=== PATIENT | female | born 1995 | race Caucasian/White ===

== ENCOUNTER 2016-09-29 15:56 | Emergency (ER) | payer OTHER ==
[2016-09-29 16:20] VITALS: TEMP 98.5; BMI 27.4
--- NOTE | 2016-09-29 16:29 | PDOC ---
History of Present Illness - History of Present Illness Initial Comments: 09/29/16 17:16 Patient is a 21 year old female with significant medical hx of seizures, severe asthma (s/p multiple intubations), and cardiac arrest x2 secondary to respiratory failure, who is presenting to the ED for wheezing. Patient was discharged on prednisone from [facility] this morning for asthma exacerbation ; she also received oral solumedrol while in the ED. After her discharge earlier today the patient began wheezing and she called EMS. Patient states she had two nebulizer treatments today which did not relieve her symptoms. The patient reports she is frequently around a tobacco smoker at home, which aggravates her asthma. The patient is not currently followed by a cigarette tipper due to insurance reasons. Surgical Hx: Allergies: eggs, latex, mushrooms PMD: Adonay Vidales MD <Julieta Navarro - Last Filed: 09/29/16 17:16> <Ijeoma Crisostomo - Last Filed: 09/29/16 17:21> - General Chief Complaint: Asthma Stated Complaint: ASTHMA Time Seen by Provider: 09/29/16 16:27 Past History <Julieta Navarro - Last Filed: 09/29/16 17:16> - Past Medical History Asthma: Yes (MULTIPLE INTUBATION, CARD ARREST X2) Psychiatric Problems: Yes (PTSD,DEPRESSION) Seizures: Yes - Psycho/Social/Smoking Cessation Hx Anxiety: No Suicidal Ideation: No Smoking History: Never smoked Have you smoked in the past 12 months: No Information on smoking cessation initiated: No Hx Alcohol Use: No Drug/Substance Use Hx: No Substance Use Type: None <Ijeoma Crisostomo - Last Filed: 09/29/16 17:21> - Past Medical History Allergies/Adverse Reactions: Allergies Allergy/AdvReac Type Severity Reaction Status Date / Time egg Allergy Verified 02/19/16 15:02 latex Allergy Verified 09/29/16 16:14 mushroom Allergy Verified 09/29/16 16:14 Home Medications: Ambulatory Orders Epinephrine [Epipen 2-Ronald] 0.3 mg IJ ASDIR #1 kit 02/19/16 Bupropion HCl [Wellbutrin Sr] 100 mg PO DAILY 09/29/16 Divalproex Sodium [Depakote] 500 mg PO DAILY 09/29/16 Epinephrine [Epipen 2-Ronald] 0.3 mg IJ ASDIR #1 kit 09/29/16 Fluticasone Propionate [Flovent Diskus] 100 mcg IH BID 09/29/16 LamoTRIgine [LaMICtal] 150 mg PO DAILY 09/29/16 Montelukast Na [Singulair -] 10 mg PO HS 09/29/16 Review of Systems - Review of Systems Comments:: 09/29/16 17:18 CONSTITUTIONAL: Absent: fever, chills, diaphoresis, generalized weakness, malaise, loss of appetite HEENT: Absent: rhinorrhea, nasal congestion, throat pain, throat swelling, difficulty swallowing, mouth swelling, ear pain, eye pain, visual changes CARDIOVASCULAR: Absent: chest pain, syncope, palpitations, irregular heart rate, lightheadedness , peripheral edema RESPIRATORY: Present: wheezing Absent: cough, shortness of breath, dyspnea with exertion, orthopnea, stridor, hemoptysis GASTROINTESTINAL: Absent: abdominal pain, abdominal distension, nausea, vomiting, diarrhea, constipation, melena, hematochezia GENITOURINARY: Absent: dysuria, frequency, urgency, hesitancy, hematuria, flank pain, genital pain MUSCULOSKELETAL: Absent: myalgia, arthralgia, joint swelling SKIN: Absent: rash, itching, pallor HEMATOLOGIC/IMMUNOLOGIC: Absent: easy bleeding, easy bruising, lymphadenopathy, frequent infections ENDOCRINE: Absent: unexplained weight gain, unexplained weight loss, heat intolerance, cold intolerance NEUROLOGIC: Absent: headache, focal weakness or paresthesia, dizziness, unsteady gait, seizure, mental status changes, bladder or bowel incontinence. PSYCHIATRIC: Absent: anxiety, depression, suicidal or homicidal ideation, hallucinations <Julieta Navarro - Last Filed: 09/29/16 17:16> *Physical Exam - Vital Signs Last Vital Signs Temp Pulse Resp BP Pulse Ox 98.5 F 109 H 18 135/63 95 09/29/16 16:14 09/29/16 16:14 09/29/16 16:14 09/29/16 16:14 09/29/16 16:24 - Physical Exam Comments: 09/29/16 17:18 GENERAL: Well developed, well nourished. Awake and alert. No acute distress. HEENT: Normocephalic, atraumatic. PERRLA, EOMI. No conjunctival pallor. Sclera are non- icteric. Moist mucous membranes. Oropharynx is clear. NECK: Supple. Full ROM. No JVD. Carotid pulses 2+ and symmetric, without bruits. No thyromegaly. No lymphadenopathy. CARDIOVASCULAR: Regular rate and rhythm. No murmurs, rubs, or gallops. Distal pulses are 2+ and symmetric. PULMONARY: No evidence of respiratory distress. Lungs clear to auscultation bilaterally. No wheezing, rales or rhonchi. ABDOMINAL: Soft. Non-tender. Non-distended. No rebound or guarding. No organomegaly. Normoactive bowel sounds. MUSCULOSKELETAL: Normal range of motion at all joints. No bony deformities or tenderness. No CVA tenderness. EXTREMITIES: No cyanosis. No clubbing. No edema. No calf tenderness. SKIN: Warm and dry. Normal capillary refill. No rashes. No jaundice. NEUROLOGICAL: Alert, awake, appropriate. Cranial nerves 2-12 intact. Normal speech. Gait is normal without ataxia. PSYCHIATRIC: Cooperative. Good eye contact. Appropriate mood and affect. <Julieta Navarro - Last Filed: 09/29/16 17:16> - Vital Signs Last Vital Signs Temp Pulse Resp BP Pulse Ox 98.5 F 109 H 18 135/63 95 09/29/16 16:14 09/29/16 16:14 09/29/16 16:14 09/29/16 16:14 09/29/16 16:24 <Ijeoma Crisostomo - Last Filed: 09/29/16 17:21> ED Treatment Course - Medications Given in the ED: ED Medications Discontinued Medications Generic Name Dose Route Start Last Admin Trade Name Tonia PRN Reason Stop Dose Admin Albuterol/Ipratropium 1 amp 09/29/16 16:40 09/29/16 16:56 Duoneb - NEB 09/29/16 16:41 1 amp ONCE STA Administration Prednisone 40 mg 09/29/16 16:40 09/29/16 16:56 Deltasone - PO 09/29/16 16:41 40 mg ONCE ONE Administration <Julieta Navarro - Last Filed: 09/29/16 17:16> Medical Decision Making - Medical Decision Making 09/29/16 16:42 30 yo fmeale with long h/o asthma who was just discharged from [facility] for asthma and dev wheezing and called 911 -she has had multiple intubations in the past -pt's lungs are clear at thsi time -she has had 2 resp tx so far and took prednisone 20mg earlier today. Will give addn prednidone 40mg po -also pt states she needs refill of epipen -currently speaking comfortably ,no wheezing IMP asthma exacerbation <Ijeoma Crisostomo - Last Filed: 09/29/16 17:21> *DC/Admit/Observation/Transfer - Attestations Scribe Attestion: 09/29/16 17:19 Documentation prepared by Julieta Navarro, acting as forensic medical examiner for Ijeoma Crisostomo MD. <Julieta Navarro - Last Filed: 09/29/16 17:16> <Ijeoma Crisostomo - Last Filed: 09/29/16 17:21> Diagnosis at time of Disposition: Asthma exacerbation - Discharge Dispostion Disposition: HOME Condition at time of disposition: Stable - Prescriptions Prescriptions: Epinephrine [Epipen 2-Ronald] 0.3 mg IJ ASDIR #1 kit - Referrals Referrals: Adonay Vidales MD [Primary Care Provider] - Sundar Sandoval MD [Staff Physician] - - Patient Instructions Printed Discharge Instructions: DI for Asthma -- Adult Additional Instructions: Please follow up with your physician this week and make an appointment to see the cigarette tipper Always take your medications as directed
[2016-09-29] MEDS ORDERED: ALBUTEROL SO4 2.5/IPRATROPIUM 0.5 INH SOL 3 ML VIAL.NEB. NEB STA (16:40)
[2016-09-29] MEDS ORDERED: predniSONE 20 MG TABLET (UD) PO ONE (16:40)
[2016-09-29] MEDS ORDERED: predniSONE 20 MG TABLET (UD) ONE (16:51)
[2016-09-29] MEDS ORDERED: ALBUTEROL SO4 2.5/IPRATROPIUM 0.5 INH SOL 3 ML VIAL.NEB. NEB ONE (16:52)
[2016-09-29 17:42] VITALS: BP 119/78; PULSE 108
== END 2016-09-29 17:45 | disposition home or self-care (01) ==
LOC: JER 15:56
PROC: 3E0F7GC Introduction of Other Therapeutic Substance into Respiratory Tract, Via Natural or Artificial Opening (ICD-10-PCS; principal; 2016-09-29)
DX: J45.901 Unspecified asthma with (acute) exacerbation (principal); G40.909 Epilepsy, unspecified, not intractable, without status epilepticus; Z86.74 Personal history of sudden cardiac arrest
CPT/HCPCS: 94640; 99281-25

== ENCOUNTER 2018-01-03 14:23 | Emergency (ER) | payer OTHER ==
[2018-01-03] MEDS ORDERED: ACETAMINOPHEN 325 MG TABLET (FP) PO ONE (15:04)
--- NOTE | 2018-01-03 15:04 | PDOC ---
Rapid Medical Evaluation Time Seen by Provider: 01/03/18 15:01 Medical Evaluation: Allergies Allergy/AdvReac Type Severity Reaction Status Date / Time egg Allergy Verified 01/03/18 14:59 latex Allergy Verified 01/03/18 14:59 mushroom Allergy Verified 01/03/18 14:59 01/03/18 15:02 Patient c/o: 3 yr old son jumped on pts stomach, Pt approx 4 weeks based on LMP, now with abd pain, no vag bleeding, no urinary complaints Patient on brief exam: left LQ and suprapubic tenderness, Patient ordered for: beta hcg, ua, ucx, tylenol, and ultrasound Patient to proceed to the ED Discharge Disposition - Diagnosis Abdominal pain - Referrals Referrals: Adonay Vidales MD [Primary Care Provider] - - Patient Instructions - Post Discharge Activity
[2018-01-03 15:05] VITALS: BMI 26.9
[2018-01-03] MEDS ORDERED: ACETAMINOPHEN 325 MG TABLET (FP) ONE (15:47)
[2018-01-03 16:09] LABS: BASO % 0.4 % (0-2.0); EOS % 1.5 % (0-4.5); HEMATOCRIT 39.8 % (32.4-45.2); MCH 27.9 pg (25.7-33.7); MCHC 32.8 g/dl (32.0-36.0); MEAN PLT VOLUME 9.6 fl (7.5-11.1); MONO % 5.6 % (3.8-10.2); NEUT % 67.5 % (42.8-82.8); PLATELET COUNT 351 K/MM3 (134-434); RBC 4.68 M/mm3 (3.60-5.2); RDW 12.5 % (11.6-15.6); WHITE BLOOD COUNT 12.7 K/mm3 (4.0-10.0)
--- NOTE | 2018-01-03 16:23 | PDOC ---
History of Present Illness - General Chief Complaint: Pain Stated Complaint: 5WKS,PAIN Time Seen by Provider: 01/03/18 15:01 - History of Present Illness Initial Comments: The patient is a 23F with no reported PMH who presents for evaluation of suprapubic/LLQ abdominal pain 1hr s/p her 3y son jumped on her stomach. She is concerned because she was recently told she was three weeks ago. She states that she recently stopped taking her OCPs in late November in order to have a child. She describes the pain as dull/achy, non-radiating, LLQ/suprapubic abdominal pain that has improved since the incident. She denies vaginal bleeding/spotting/discharge. She denies dysuria, hematuria, N /V/C/D, or blood in her stool. 01/03/18 16:22 Past History - Past Medical History Allergies/Adverse Reactions: Allergies Allergy/AdvReac Type Severity Reaction Status Date / Time egg Allergy Verified 01/03/18 14:59 latex Allergy Verified 01/03/18 14:59 mushroom Allergy Verified 01/03/18 14:59 Home Medications: Ambulatory Orders Epinephrine [Epipen 2-Ronald] 0.3 mg IJ ASDIR #1 kit 02/19/16 Bupropion HCl [Wellbutrin Sr] 100 mg PO DAILY 09/29/16 Divalproex Sodium [Depakote] 500 mg PO DAILY 09/29/16 Epinephrine [Epipen 2-Ronald] 0.3 mg IJ ASDIR #1 kit 09/29/16 Fluticasone Propionate [Flovent Diskus] 100 mcg IH BID 09/29/16 LamoTRIgine [LaMICtal] 150 mg PO DAILY 09/29/16 Methylprednisolone [Medrol Dose Ronald] 4 mg PO ASDIR #21 tablet 09/29/16 Montelukast Na [Singulair -] 10 mg PO HS 09/29/16 Asthma: Yes (MULTIPLE INTUBATION, CARD ARREST X2) COPD: No Psychiatric Problems: Yes (PTSD,DEPRESSION) Seizures: Yes - Reproductive History Is Patient Now?: Yes - Suicide/Smoking/Psychosocial Hx Smoking History: Never smoked Have you smoked in the past 12 months: No Hx Alcohol Use: No Drug/Substance Use Hx: No Substance Use Type: None Review of Systems - Review of Systems Able to Perform ROS?: Yes Comments:: GENERAL/CONSTITUTIONAL: No fever or chills. No weakness. HEAD, EYES, EARS, NOSE AND THROAT: No change in vision. No ear pain or discharge. No sore throat. CARDIOVASCULAR: No chest pain or shortness of breath RESPIRATORY: No cough, wheezing, or hemoptysis. GASTROINTESTINAL: No nausea, vomiting, diarrhea or constipation. GENITOURINARY: No dysuria, frequency, or change in urination MUSCULOSKELETAL: No joint or muscle swelling or pain. No neck or back pain SKIN: No rash NEUROLOGIC: No headache, vertigo, loss of consciousness, or change in strength/ sensation HEMATOLOGIC/LYMPHATIC: No anemia, easy bleeding, or history of blood clots ALLERGIC/IMMUNOLOGIC: No hives or skin allergy 01/04/18 21:33 *Physical Exam - Vital Signs Last Vital Signs Temp Pulse Resp BP Pulse Ox 98.7 F 87 19 112/61 100 01/03/18 14:59 01/03/18 14:59 01/03/18 14:59 01/03/18 14:59 01/03/18 14:59 - Physical Exam Comments: GENERAL: Awake, alert, and fully oriented, in no acute distress HEAD: No signs of trauma, normocephalic, atraumatic EYES: PERRLA, EOMI, sclera anicteric, conjunctiva clear ENT: Hearing grossly normal, nares patent, oropharynx clear without exudates. Moist mucosa NECK: Normal ROM, supple, no lymphadenopathy LUNGS: No distress, speaks full sentences, clear to auscultation bilaterally HEART: Regular rate and rhythm, normal S1 and S2, no murmurs appreciated, peripheral pulses normal and equal bilaterally ABDOMEN: Soft, mild LLQ TTP without rebound or guarding, non-distended, normoactive bowel sounds EXTREMITIES : Normal inspection, Normal range of motion, no edema. No clubbing or cyanosis NEUROLOGICAL: Cranial nerves II through XII grossly intact. Normal speech, normal gait, no focal sensorimotor deficits SKIN: Warm, dry, no rashes or lesions noted 01/04/18 21:33 ED Treatment Course - LABORATORY CBC & Chemistry Diagram: 01/03/18 16:03 01/03/18 16:03 - Medications Given in the ED: ED Medications Discontinued Medications Generic Name Dose Route Start Last Admin Trade Name Freq PRN Reason Stop Dose Admin Acetaminophen 650 mg 01/03/18 15:04 01/03/18 16:04 Tylenol - PO 01/03/18 15:05 650 mg ONCE ONE Administration Medical Decision Making - Medical Decision Making The patient is a 23F with no reported PMH who presents for evaluation of suprapubic/LLQ abdominal pain 1hr s/p her 3y son jumped on her stomach. ED Course: Upreg, UA, CMP, CBC Transvaginal US Transvaginal US negative or intrauterine and no other pathology observed Upreg negative, will confirm with serum test Tylenol 975mg PO once for pain Serum negative. Discussed the results with the patient. Pain improved s/p Tylenol Plan for discharge with PCP and [facility] f/u. The patient understands and agrees with the plan of care as outlined above and that questions have been answered to his apparent satisfaction. The patient was instructed to follow up with their primary care physician, was given return precautions, and voiced understanding. Dispo: Home with PCP f/u and referral given for [facility] 01/04/18 21:35 *DC/Admit/Observation/Transfer Diagnosis at time of Disposition: Abdominal pain Qualifiers: Abdominal location: left lower quadrant Qualified Code(s): R10.32 - Left lower quadrant pain - Discharge Dispostion Disposition: HOME Condition at time of disposition: Improved Decision to Admit order: No - Referrals Referrals: Adonay Vidales MD [Non Staff, Medical] - - Patient Instructions Printed Discharge Instructions: DI for Acute Abdomen - Post Discharge Activity
[2018-01-03 16:29] LABS: HCG,QUALITATIVE URINE NEGATIVE
[2018-01-03 16:34] LABS: URINE APPEARANCE CLEAR; URINE BILIRUBIN NEGATIVE (<2.0 mg/dL); URINE COLOR STRAW; URINE GLUCOSE (UA) NEGATIVE (NEGATIVE); URINE KETONE NEGATIVE (NEGATIVE); URINE LEUK ESTERASE NEGATIVE (NEGATIVE); URINE NITRITE NEGATIVE (NEGATIVE); URINE PROTEIN NEGATIVE (NEGATIVE); URINE UROBILINOGEN NEGATIVE mg/dL (0.2-1.0)
[2018-01-03 16:43] LABS: ALBUMIN 4.1 g/dl (3.4-5.0); ANION GAP 7 (8-16); BLOOD UREA NITROGEN 9 mg/dL (7-18); CALCIUM 9.6 mg/dL (8.5-10.1); CHLORIDE 107 mmol/L (98-107); CO2 28 mmol/L (21-32); CREATININE 0.8 mg/dL (0.55-1.02); GLUCOSE,RANDOM 76 mg/dL (74-106); POTASSIUM 4.1 mmol/L (3.5-5.1); SGOT/AST 15 U/L (15-37); SGPT/ALT 22 U/L (12-78); SODIUM 142 mmol/L (136-145)
[2018-01-03 16:45] LABS: ALK PHOS 87 U/L (45-117); BILIRUBIN,TOTAL 0.2 mg/dL (0.2-1.0); TOT PROT 7.7 g/dl (6.4-8.2)
--- NOTE | 2018-01-03 17:02 | PDOC ---
Attending Attestation - HPI HPI: 01/03/18 17:40 The patient is a 23 year old female, with no significant past medical history, who presents to the emergency department after her son jumped on her abdomen with concern for since her menstrual period is reportedly 5 weeks late. The patient denies chest pain, shortness of breath, headache and dizziness. The patient denies fever, chills, nausea, vomit, diarrhea and constipation. The patient denies dysuria, frequency, urgency and hematuria. Allergies: NKDA Past surgical history: none reported - Physicial Exam PE: 01/03/18 17:42 GENERAL: Well-appearing, well-nourished. No apparent distress. HEENT: Normocephalic, atraumatic. PERRL, EOM intact. CARDIOVASCULAR: Normal S1, S2. Regular rate and rhythm. PULMONARY: Clear to auscultation bilaterally. ABDOMEN: Soft, non-distended, non-tender. EXTREMITIES: Normal ROM in all four extremities. No gross deformities. SKIN: Warm, dry. No rash NEUROLOGICAL: No focal neurological deficits. - Medical Decision Making 01/03/18 17:40 23yo F with no PMHx presenting for evaluation of after her son " jumped onto" her abdomen today. She denies taking an at-home test. She reports her mesntrual period is "5 weeks late". Plan: test, reassess Documentation prepared by Anila Hung, acting as bacteriologist medical for Ijeoma Crisostomo MD <Anila Hung - Last Filed: 01/03/18 18:08> - Resident Resident Name: Kenneth Jacome - ED Attending Attestation I have performed the following: I have examined & evaluated the patient, The case was reviewed & discussed with the resident, I agree w/resident's findings & plan, Exceptions are as noted - Medical Decision Making 01/03/18 18:23 the test is NEGATIVE and her pelvic US shows normal endometrium and no torsion 01/03/18 19:03 <Ijeoma Crisostomo - Last Filed: 01/03/18 19:04>
[2018-01-03 18:27] VITALS: BP 149/86; PULSE 80; TEMP 98.9
== END 2018-01-03 18:54 | disposition home or self-care (01) ==
LOC: JER 14:23
DX: O26.891 Other specified pregnancy related conditions, first trimester (principal); S39.81XA Other specified injuries of abdomen, initial encounter; W50.0XXA Accidental hit or strike by another person, initial encounter; Y93.89 Activity, other specified; Y92.038 Other place in apartment as the place of occurrence of the external cause; Y99.8 Other external cause status; Z3A.01 Less than 8 weeks gestation of pregnancy
CPT/HCPCS: 36415; 76801-TC; 76817-TC; 80053; 81003; 84703; 85025; 87086; 99282-25

== ENCOUNTER 2019-01-18 16:14 | Emergency (ER) | payer OTHER ==
[2019-01-18 16:18] VITALS: BP 129/79; PULSE 85; TEMP 98.5; BMI 28.1
--- NOTE | 2019-01-18 16:21 | PDOC ---
Rapid Medical Evaluation Chief Complaint: Vaginal Bleeding Time Seen by Provider: 01/18/19 16:19 Medical Evaluation: Allergies Allergy/AdvReac Type Severity Reaction Status Date / Time egg Allergy Verified 01/18/19 16:15 latex Allergy Verified 01/18/19 16:15 mushroom Allergy Verified 01/18/19 16:15 Vital Signs Temp Pulse Resp BP Pulse Ox 98.5 F 85 18 129/79 100 01/18/19 16:16 01/18/19 16:16 01/18/19 16:16 01/18/19 16:16 01/18/19 16:16 01/18/19 16:20 HPI: 15 weeksw gravid wigth vaginal bleeding x 30 minutes PE: No gross deficits ORDERS: Labs Discharge Disposition - Diagnosis Threatened - Referrals - Patient Instructions - Post Discharge Activity
[2019-01-18] MEDS ORDERED: ACETAMINOPHEN 1000 MG/100 ML VIAL (NON FORMULARY) IVPB ONE (17:04)
--- NOTE | 2019-01-18 17:16 | PDOC ---
History of Present Illness - General Chief Complaint: Vaginal Bleeding Stated Complaint: va Time Seen by Provider: 01/18/19 16:19 - History of Present Illness Initial Comments: 01/18/19 17:16 CHIEF COMPLAINT: abdominal pain/bleeding in HISTORY OF PRESENT ILLNESS: 24 yo F with significant hx of PID presents to ED with abdominal cramping x 1 hour and vaginal spotting x 30 minutes. Patient states her LMP is unknown. She denies going through any pads with her vaginal bleeding and reports that she just noticed spotting after urination. Patient's OBGYN is Dr. Cuello at [facility]. No recent travel or sick contacts. PAST MEDICAL HISTORY: Denies past medical history FAMILY HISTORY: Denies SOCIAL HISTORY: Denies tobacco, alcohol, illicit drug use. SURGICAL HISTORY: Denies ALLERGIES: No known drug allergies REVIEW OF SYSTEMS General/Constitutional: Denies fever or chills. Denies weakness. HEENT: Denies change in vision. Denies ear pain or discharge. Denies sore throat. Cardiovascular: Denies chest pain or shortness of breath. Respiratory: Denies cough, wheezing, or hemoptysis. Gastrointestinal: Abdominal cramping. Denies nausea, vomiting, diarrhea or constipation. Denies rectal bleeding. Genitourinary: Vaginal spotting after urination today. Musculoskeletal: Denies joint or muscle swelling or pain. Denies neck or back pain. Skin and breasts: Denies rash or easy bruising. Neurologic: Denies headache, vertigo, loss of consciousness, or loss of sensation. PHYSICAL EXAM General Appearance: Well-appearing, appropriately dressed. No apparent distress , no intoxication. HEENT: EOMI, PERRLA, normal ENT inspection, normal voice, TMs normal, pharynx normal. No conjunctival pallor. No photophobia, scleral icterus. Neck: Supple. Trachea midline. No tenderness, rigidity, carotid bruit, stridor , lymphadenopathy, or thyromegaly. Respiratory/Chest: Lungs CTAB. No shortness of breath, chest tenderness, respiratory distress, accessory muscle use. No crackles, rales, rhonchi, stridor , wheezing, dullness Cardiovascular: RRR. S1, S2. No JVD, murmur, bradycardia, tachycardia. Vascular Pulses: Dorsalis-Pedis (R): 2+, Dorsalis-Pedis (L): 2+ Gastrointestinal/Abdominal: Lower abdominal and suprapubic tenderness. Normal bowel sounds. Abdomen soft, non-distended. No tenderness or rebound tenderness. No organomegaly, pulsatile mass, guarding, hernia, hepatomegaly, splenomegaly. Pelvic: External genitalia normal without lesions. Vaginal vault with green, clumpy discharge. No appreciable bleeding. Cervix is long and closed. No cervical motion tenderness. Uterus is nontender and normal in size. R adnexal tenderness. Lymphatic: No adenopathy, tenderness. Musculoskeletal/Extremities: Normal inspection. FROM of all extremities, normal capillary refill. Pelvis Stable. No CVA tenderness. No tenderness to extremities, pedal edema, swelling, erythema or deformity. Integumentary: Appropriate color, dry, warm. No cyanosis, erythema, jaundice or rash Neurologic: coding assistant II-XII intact. Fully oriented, alert. Appropriate mood/affect. Motor strength 5/5. No appreciable EOM palsy, facial droop or sensory deficit. 01/18/19 17:23 Past History - Past Medical History Allergies/Adverse Reactions: Allergies Allergy/AdvReac Type Severity Reaction Status Date / Time egg Allergy Verified 01/18/19 16:15 latex Allergy Verified 01/18/19 16:15 mushroom Allergy Verified 01/18/19 16:15 Home Medications: Ambulatory Orders Epinephrine [Epipen 2-Ronald] 0.3 mg IJ ASDIR #1 kit 02/19/16 Bupropion HCl [Wellbutrin Sr] 100 mg PO DAILY 09/29/16 Divalproex Sodium [Depakote] 500 mg PO DAILY 09/29/16 Epinephrine [Epipen 2-Ronald] 0.3 mg IJ ASDIR #1 kit 09/29/16 Fluticasone Propionate [Flovent Diskus] 100 mcg IH BID 09/29/16 LamoTRIgine [LaMICtal] 150 mg PO DAILY 09/29/16 Methylprednisolone [Medrol Dose Ronald] 4 mg PO ASDIR #21 tablet 09/29/16 Montelukast Na [Singulair -] 10 mg PO HS 09/29/16 Asthma: Yes (MULTIPLE INTUBATION, CARD ARREST X2) COPD: No Psychiatric Problems: Yes (PTSD,DEPRESSION) Seizures: Yes - Suicide/Smoking/Psychosocial Hx Smoking History: Never smoked Have you smoked in the past 12 months: No Hx Alcohol Use: No Drug/Substance Use Hx: No Substance Use Type: None *Physical Exam - Vital Signs Last Vital Signs Temp Pulse Resp BP Pulse Ox 98.5 F 85 18 129/79 100 01/18/19 16:16 01/18/19 16:16 01/18/19 16:16 01/18/19 16:16 01/18/19 16:16 ED Treatment Course - LABORATORY CBC & Chemistry Diagram: 01/18/19 18:00 01/18/19 18:00 - RADIOLOGY Radiology Studies Ordered: Category Date Time Status LIMITED US [US] Stat Ultrasound 01/18/19 16:34 Ordered Medical Decision Making - Medical Decision Making 01/19/19 23:29 24 yo F with significant hx of PID presents to ED with abdominal cramping x 1 hour and vaginal spotting x 30 minutes. -labs, urine -TVUS 01/19/19 23:29 wbc 16 with pelvic exam concerning for STD, will treat with azithromycin and ceftriaxone. Advised patient to take medication as prescribed and follow up with OB within the next week. Advised patient of signs and symptoms for return to ED. Patient verbalized understanding and agrees to plan. *DC/Admit/Observation/Transfer Diagnosis at time of Disposition: Pelvic inflammatory disease - Discharge Dispostion Disposition: HOME Condition at time of disposition: Stable Decision to Admit order: No - Referrals Referrals: Adonay Vidales MD [Primary Care Provider] - - Patient Instructions Printed Discharge Instructions: DI for Pelvic Inflammatory Disease Additional Instructions: Please follow up with Dr. Cuello for continued management of your and recurrent PID. If you develop any fever, vomiting, diarrhea, new vaginal bleeding, worsening abdominal pain, or any new or worsening symptoms, please return to the ER. - Post Discharge Activity
[2019-01-18] MEDS ORDERED: AZITHROMYCIN 500 MG TABLET PO ONE (17:22)
--- NOTE | 2019-01-18 18:43 | PDOC ---
*Physical Exam - Vital Signs Last Vital Signs Temp Pulse Resp BP Pulse Ox 98.5 F 85 18 129/79 100 01/18/19 16:16 01/18/19 16:16 01/18/19 16:16 01/18/19 16:16 01/18/19 16:16 - Physical Exam General Appearance: Yes: Nourished Neck: positive: Trachea midline Respiratory/Chest: positive: Lungs Clear, Normal Breath Sounds, Respiratory Distress Cardiovascular: positive: Regular Rhythm, Regular Rate, S1, S2 Gastrointestinal/Abdominal: positive: Normal Bowel Sounds, Tender (mild supapubic ttp. ) Integumentary: positive: Normal Color, Dry, Warm Neurologic: positive: fuel island attendant II-XII NML intact, Fully Oriented, Alert ED Treatment Course - LABORATORY CBC & Chemistry Diagram: 01/18/19 18:00 01/18/19 18:00 Medical Decision Making - Medical Decision Making 01/18/19 18:41 24 yo F currently 15 weeks h/o miscarriage. here with c/o abd cramping and vaginal bleeding. had urinated earlier noted blood with wiping. was bright red. no trauma. no has crampy abd pain. no urinary sxs. no mod factors. no h/o h /o ectopic. on exam pt with mild abd tenderness. focused ED us abd noted for normal heart rate 133 bpm, movement noted. will send to radiology for further evaluation. type and screen pending. pt seen and examined with VELMA Marcum, agree with her assessment and plan. *DC/Admit/Observation/Transfer Diagnosis at time of Disposition: Threatened - Referrals Referrals: Adonay Vidales MD [Primary Care Provider] - - Patient Instructions - Post Discharge Activity
[2019-01-18 18:45] LABS: BASO % 0.4 % (0-2.0); EOS % 0.7 % (0-4.5); HEMATOCRIT 35.9 % (32.4-45.2); HEMOGLOBIN 11.7 GM/dL (10.7-15.3); MCH 28.1 pg (25.7-33.7); MCHC 32.6 g/dl (32.0-36.0); MEAN CELL VOLUME 86.2 fl (80-96); MEAN PLT VOLUME 9.4 fl (7.5-11.1); MONO % 5.1 % (3.8-10.2); NEUT % 76.8 % (42.8-82.8); PLATELET COUNT 338 K/MM3 (134-434); RBC 4.17 M/mm3 (3.60-5.2); RDW 12.3 % (11.6-15.6)
[2019-01-18 18:47] LABS: PH,URINE 7.5 (5.0-8.0); URINE APPEARANCE CLEAR; URINE BILIRUBIN NEGATIVE (NEGATIVE); URINE COLOR YELLOW; URINE GLUCOSE (UA) NEGATIVE (NEGATIVE); URINE KETONE NEGATIVE (NEGATIVE); URINE LEUK ESTERASE NEGATIVE (NEGATIVE); URINE NITRITE NEGATIVE (NEGATIVE); URINE PROTEIN NEGATIVE (NEGATIVE); URINE UROBILINOGEN 0.2 mg/dL (0.2-1.0)
[2019-01-18 19:17] LABS: INR 1.12 (0.83-1.09); PROTHROMBIN TIME (PATIENT) 13.2 SEC (9.7-13.0)
[2019-01-18 19:23] LABS: ALBUMIN 3.2 g/dl (3.4-5.0); BILIRUBIN,TOTAL 0.4 mg/dL (0.2-1); BLOOD UREA NITROGEN 4.3 mg/dL (7-18); CALCIUM 9.1 mg/dL (8.5-10.1); CREATININE 0.5 mg/dL (0.55-1.3); POTASSIUM 4.8 mmol/L (3.5-5.1); TOT PROT 7.1 g/dl (6.4-8.2)
[2019-01-18] MEDS ORDERED: AZITHROMYCIN 250 MG TABLET ONE (19:56)
[2019-01-18] MEDS ORDERED: ACETAMINOPHEN INJECTION 100 ML IVPB ONE (19:56)
[2019-01-18] MEDS ORDERED: cefTRIAXone SODIUM 1 GM VIAL ONE (19:57)
== END 2019-01-18 21:22 | disposition home or self-care (01) ==
LOC: JER 16:14
PROC: 3E033NZ Introduction of Analgesics, Hypnotics, Sedatives into Peripheral Vein, Percutaneous Approach (ICD-10-PCS; principal; 2019-01-18)
PROC: 3E02329 Introduction of Other Anti-infective into Muscle, Percutaneous Approach (ICD-10-PCS; 2019-01-18)
DX: O20.0 Threatened abortion (principal); Z3A.15 15 weeks gestation of pregnancy; O23.592 Infection of other part of genital tract in pregnancy, second trimester
CPT/HCPCS: 36415; 76815-TC; 80053; 81003; 84702; 84703; 85025; 85610; 86850; 86900; 86901; 87491; 87591; 99281-25; J0131